=== PATIENT | male | born 1995 | race African-American/Black ===

== ENCOUNTER 2016-05-26 11:57 | Emergency (ER) | payer SELFPAY ==
[2016-05-26 11:58] VITALS: BP 138/67; PULSE 58; RESP 12; TEMP 97.8; O2SAT 99
--- NOTE | 2016-05-26 12:15 | PD ---
HPI Chief Complaint: Medical Clearance Time Seen by Provider: 12:15 Travel History International Travel<30 days: No Contact w/Intl Traveler<30days: No Traveled to known affect area: No History of Present Illness HPI 20-year-old male presents to emergency department requesting a physical exam for college football tryouts. He is accompanied with a lab slip for sickle cell testing. Patient states he did not know where to go see Emergency department. States he is well. He has no significant medical history. He has no other symptoms to report History Past Medical Histgory Medical History: Denies Significant Hx Social History Alcohol Use: No Tobacco Use: No Allergies-Medications (Allergen,Severity, Reaction): Coded Allergies: No Known Allergies (Unverified , 05/26/16) Review of Systems Except as stated in HPI: all other systems reviewed are Neg Physical Exam Narrative GENERAL: Well-nourished male patient, ambulatory no acute distress SKIN: Warm and dry. HEAD: Atraumatic. Normocephalic. EYES: Pupils equal and round. No scleral icterus. No injection or drainage. ENT: No nasal bleeding or discharge. Mucous membranes pink and moist. NECK: Trachea midline. No JVD. CARDIOVASCULAR: Regular rate and rhythm. No murmur appreciated. RESPIRATORY: No accessory muscle use. Clear to auscultation. Breath sounds equal bilaterally. GASTROINTESTINAL: Abdomen soft, non-tender, nondistended. Hepatic and splenic margins not palpable. MUSCULOSKELETAL: No obvious deformities. No clubbing. No cyanosis. No edema. NEUROLOGICAL: Awake and alert. No obvious cranial nerve deficits. Motor grossly within normal limits. Normal speech. PSYCHIATRIC: Appropriate mood and affect; insight and judgment normal. Data Data Last Documented VS [facility] Medical Screen Exam Complete: Yes Emergency Medical Condition: No Differential Diagnosis Normal examination Narrative Course 20-year-old male presents to the emergency department requesting a physical exam. He also has a lab slip for the outpatient lab for sickle cell testing. The patient states he did not know where else to go. The patient as well. At this time there are no urgent or emergent needs medical intervention identified. I have given him instructions and directions on where to get the outpatient lab. A medical screening exam was performed: At the time of evaluation the presenting medical condition was determined not to be of an emergent nature. The patient was given the option of receiving additional care, but declined. Patient was given options for additional community resources from which to obtain care. The Patient Has Been advised to seek medical attention for their presenting complaint. The patient has been advised to return to the ER at any time if an emergent condition develops. Primary Impression: Encounter for medical screening examination Condition: Stable Winsome Lin May 26, 2016 12:15
== END 2016-05-26 13:16 | disposition left against medical advice (07) ==
LOC: NETRI 11:57
DX: Z02.5 Encounter for examination for participation in sport (principal)
CPT/HCPCS: 99281

== ENCOUNTER 2016-06-02 12:19 | Emergency (ER) | payer SELFPAY ==
[~2016-06-02] VITALS: Ht 182.9 cm; Wt 97.0 kg
[2016-06-02 12:20] VITALS: BP 136/76; PULSE 66; RESP 12; TEMP 98.2; O2SAT 98
== END 2016-06-02 14:27 | disposition left against medical advice (07) ==
LOC: NETRI 12:19
DX: M79.645 Pain in left finger(s) (principal)
CPT/HCPCS: 99281